=== PATIENT | female | born 1980 | race Caucasian/White ===

== ENCOUNTER 2021-10-18 11:00 | Outpatient (CLI) | payer OTHER ==
--- NOTE | 2021-10-18 12:00 | SLEEP CARE CONSULTATION ---
Information from patient questionnaire entered by Omar Sinclair MA. I have reviewed and concur with the information entered by Omar Sinclair MA. This document represents the service I personally performed and the decisions made by , Yisel Jean ARNP. History of Present Illness Service Date and Time: 10/18/2021 1100 Reason for Visit: New patient (INITIAL, ONSET 04/2021, NO PRIORS) Chief Complaint: reports: Unrefreshed sleep, Snoring, Excessive daytime sleepiness, Fatigue, Frequent awakenings at night Date of Onset: GOTTEN WORSE LAST 4-6 MONTHS Usual bedtime: 4522-6770 PM Time it takes to fall asleep: 30-90 minutes Snores at night: Yes Observed to quit breathing while asleep: No Sleeps alone due to snoring: No Number of times waking at night: 2-3 Reasons for waking at night: reports: Choking (occasional when supine for a nap), Pain, Bathroom Toss, Turn, or Twitch while sleeping: Yes Recalls having dreams: No Usually gets out of bed at: 0700 - 0730 Feels refreshed in the morning: No Morning headache: Yes (1 time a week, takes excedrin, gone in 1-2 hrs) Sleepy or fatigued during the day: Yes Ever fallen asleep while driving: No Takes day naps: Yes (3-4 times for 2-3 hrs) Dreams during day naps: No Prior sleep studies: No Additional HPI information: I had the pleasure of seeing TINY MONTANA today regarding the possibility of her having a sleep disorder. Her current complaints are fatigue, frequent night awakenings, snoring and unrefreshed sleep. She states over the past few months her is telling her that she is snoring all the time. She is tired all the time. She has not been taking her vitamin D which used to help her feel more awake during the day. She is having problems with stating awake during the day and will have to take a nap for a few hours. She tosses and turns due to back pain. She wakes up for the bathroom and for pain. She just retired from her job and she has been steadily gaining weight over last 20 years. She has gone throu gh a series of injuries and then surgeries through these years. She was in the [facility]. She states when she was on the ship she would not be able to sleep and was given Ambien. She says it helped to keep her asleep. - Parasomnia Symptoms Ever been unable to move upon waking from sleep: No Walks in sleep: No Talks in sleep: No Ever acted out dreams in sleep: Yes (wakes herself up crying occasionally) Ever felt weak in the knees when startled or emotional: No Bothered by creepy, crawly, restless sensations in legs: No Problems with memory or concentration: Yes (both, memory is worse than concentration) Subjective Initial [place] Sleepiness Scale score: 15 (2020) Past Medical History Past Medical History: reports: Insulin resistance, Anxiety, Mood disorder (PTSD), Other (PELVIC FLOOR PAIN, LOWER BACK/NECK PAIN; borderline diabetes) Social History The patient's occupation is a RE. Patient is and lives in [place]. Have you smoked in the past 12 months: No Quit date: Alcohol use: Yes Alcohol amount and frequency: 4-6 X MONTHLY Caffeine use: Yes Caffeine amount and frequency: 1-2 CUPS DAILY Family History Family history of sleep disordered breathing: Yes Family Hx Sleep Apnea: Mother: Snoring, Father: Snoring Allergies and Home Medications Known drug allergies: Yes (MYCELEX) Home medication list reviewed: Yes Allergy and home medication list: Cetirizine Flonase Review of Systems Weight gain over past 5 years: 67+ Cardiovascular: reports: leg or foot swelling Gastrointestinal: reports: diarrhea Urinary: reports: frequency Neurological: reports: headaches Psychiatric: reports: anxiety Ear/Nose/Throat: reports: nasal congestion, sinus problems, wisdom teeth removed (took out 2). denies: tonsillectomy Endocrine: reports: sluggishness Musculoskeletal: reports: joint pain, neck pain, back pain Immunologic: reports: sneezing, itching Physical Exam Vital signs obtained and entered by: Bekah SINCLAIR CMA DEVON Blood Pressure: 129/67 (left) Heart Rate: 63 O2 Saturation: 98 (cloth mask) Height: 5 ft 6 in Weight: 228 lb (with clothes) Body Mass Index: 36.8 BMI Classification: Obese Neck circumference: 16.15 (inches) Mouth and throat: narrow oropharynx Soft palate: long Hard palate: normal Uvula: normal Uvula visualization: 100% Mallampati Class I Tongue: enlarged in size with teeth fontenot on lateral edges Tonsils: 1+ Neck: normal w/o lymphadenopathy or thyromegaly Heart: regular rate and rhythm Lungs: clear bilaterally Impression and Plan 1. Suspected Obstructive Sleep Apnea-Hypopnea Syndrome, as suggested by a history of loud and irregular snoring, gasping or choking in sleep, morning headache, frequent awakening during the night, unrefreshed sleep, cognitive impairment, and excessive daytime sleepiness. Narrow oropharynx and obesity are common predisposing factors for obstructive sleep apnea-hypopnea syndrome. I recommend proceeding to polysomnography to confirm the diagnosis and to assess severity. If the patient has significant sleep disordered breathing, a manual CPAP titration study will also be performed to find the optimal treatment pressure. I informed the patient of what the sleep studies involve and after some discussion, obtained agreement to proceed. The pathophysiology of obstructive sleep apnea-hypopnea syndrome was discussed with the patient and health risks of cardiovascular and cerebrovascular disease if not treated. Risks of drowsy driving discussed in detail and patient advised to avoid long distance driving and to date puller at the first sign of drowsiness. Patient agreed to plan. * Schedule polysomnography/HST * Avoid long distance driving or driving when feeling sleepy. * Avoid alcohol, sedative and muscle relaxant around bedtime. * Attempt to lose weight. * Review instructions provided by trained office staff on how to prepare for the sleep study. * Return for follow-up after sleep study completed. Counseling Topics: Weight loss health impact Visit Type: In Office Time Spent with Patient (minutes): 32 Provider Statement: I spent 100% of the Face to Face Visit with the patient with greater than 50% spent counseling the patient and coordination of care.
[2021-10-18 12:01] VITALS: BP 129/67
== END 2021-10-18 11:01 | disposition home or self-care (01) ==
LOC: SC 11:00
PROVIDERS: ATTEND Nurse Practitioner Family
DX: R06.83 Snoring (principal); R51.9 Headache, unspecified; G47.8 Other sleep disorders; R41.89 Other symptoms and signs involving cognitive functions and awareness; G47.10 Hypersomnia, unspecified
CPT/HCPCS: 99203; 99212

== ENCOUNTER 2021-12-07 16:19 | Outpatient (CLI) | payer OTHER | END 2021-12-07 16:20 | disposition home or self-care (01) | LOC: SC 16:19 | PROVIDERS: ATTEND Nurse Practitioner Family | DX: G47.33 Obstructive sleep apnea (adult) (pediatric) (principal); R09.02 Hypoxemia | CPT/HCPCS: 95806 ==

== ENCOUNTER 2022-01-11 16:25 | Outpatient (CLI) | payer OTHER ==
[2022-01-11 16:55] VITALS: BP 137/88
--- NOTE | 2022-01-11 16:55 | SLEEP CARE CONSULTATION ---
Information from patient questionnaire entered by Omar Flores MA. I have reviewed and concur with the information entered by Omar Flores MA. This document represents the service I personally performed and the decisions made by , Yisel Jean ARNP. History of Present Illness Service Date and Time: 01/11/2022 1625 Initial [place] Sleepiness Scale score: 15 (2020) Current [place] Sleepiness Scale score: 16 (12/2021) Additional HPI information: TINY MONTANA returns for follow up and results of the recently performed home sleep study. I explained the pathophysiology behind obstructive sleep apnea. We then spent quite a bit of time discussing different treatment options. For mild obstructive sleep apnea, surgery and oral appliance are alternatives to nasal CPAP therapy but in moderate or severe cases, nasal CPAP is the most effective and reliable treatment. Because apnea is primarily in supine position, then positional management therapy could be effective. Methods discussed such as positioning with pillows to prevent supine sleep. I reviewed the impact of weight changes on sleep apnea and strongly recommended losing weight. After some discussion, the patient opted to go with the nasal CPAP therapy. Nasal autoCPAP set at 4-15 cmH20 will be ordered with rationale explained. A manual titration study will be ordered if unable to find optimal pressure with office adjustments. I explained how CPAP machine works and what to expect when using the machine. Using CPAP every night in order to get used to it was emphasized. Patient advised to put CPAP mask on before getting into bed so as not to fall asleep without CPAP. To assist acclimation to CPAP use, it could also be used for a short time during day while reading or watching TV. The patient was instructed to call the CPAP supplier to discuss any mechanical problem that may occur. If the mask given is uncomfortable or is difficult to keep on through the night even with adjustment, contact the CPAP supplier as many will replace with anothe r mask style if notified before 30 days. If snoring or perceives is not getting enough air or too much air from the machine, notify this office. AASM patient education PAP tips reviewed and given to patient. Patient does not drink alcohol. Patient was cautioned about risks of drowsy driving until sleepiness symptoms resolve. Sleep Study - Results Type of Sleep Study: Home sleep study (F\U HOME STUDY) Prior sleep studies: No Polysomnography/Home Sleep Study results: Physician Impression: The quality of the study is good. The length of the study is adequate (> 240 minutes). Please also see the tabulated and graphic data. 1. Obstructive Sleep Apnea-Hypopnea (ICD-10 G47.33), mild, with an AHI of 10.5/hr and mahendra SaO2 of 81%. During the study, the patient had 6 apneas (6 obstructive, 0 central, 0 mixed) and 61 hypopneas. The longest episode lasted 90.5 seconds. The respiratory events occurred more frequently during supine sleep (supine AHI was 12.5 and non-supine, 7.04). 2. Hypoxemia (ICD-10 R09.02), mild, with the lowest oxygen saturation of 81 % and 73.5 minutes with SaO2 under 90%. Baseline oxygen saturation was normal (Average oxygen saturation was 91%). Allergies and Home Medications Home medication list reviewed: Yes (Vitamin D) Allergy and home medication list: Allergies clotrimazole [From Mycelex] Allergy (Verified 12/12/14 09:22) Rash Review of Systems Review of systems same as previous: No (Gastro-diverticulitis w/in sigmoid, waiting to see what they will do) Physical Exam Vital signs obtained and entered by: VALENTINA DEE Blood Pressure: 137/88 (LEFT,PULSE 78, RESP 16, ) Cuff size: wrist Heart Rate: 72 O2 Saturation: 97 (PAPER) Height: 5 ft 7 in Weight: 230 lb Weight change since last visit: 222 Body Mass Index: 36.0 BMI Classification: Obese Impression and Plan 1. Obstructive Sleep Apnea-Hypopnea Syndrome, mild, with lowest oxygen saturation of 81%. Obviously this is the cause of the patients symptoms of unrefreshed sleep, and excessive daytime sleepiness. Positive pressure therapy could benefit insulin resistance, anxiety and mood disorder (PTSD). As mentioned above, the patient will be started on nasal autoCPAP therapy with pressure set at 4-15 cmH2O. A manual titration study will be completed if unable to find optimal treatment pressure with office adjustments. Compliance guidelines also reviewed. A copy of compliance guidelines will be given for reference at check out. Because the apnea is more severe supine, I instructed to avoid sleeping supine using pillow positioning until able to start CPAP use. 2. Hypoxemia, mild, with the lowest oxygen saturation of 81 % and 73.5 minutes with SaO2 under 90%. Her baseline oxygen saturation was normal with an average oxygen saturation of 91%. * Nasal auto CPAP therapy, pressure at 4-15 cm H2O. * Attempt to lose weight. * Avoid alcohol consumption near bedtime. * Avoid supine sleep until using CPAP. * The patient is again cautioned about driving until sleepiness completely resolves. * Return one month after CPAP obtained. I will assess response to therapy and compliance at that time. Counseling Topics: Weight loss health impact Visit Type: In Office Time Spent with Patient (minutes): 20 Provider Statement: I spent 100% of the Face to Face Visit with the patient with greater than 50% spent counseling the patient and coordination of care.
== END 2022-01-11 16:26 | disposition home or self-care (01) ==
LOC: SC 16:25
PROVIDERS: ATTEND Nurse Practitioner Family
DX: G47.33 Obstructive sleep apnea (adult) (pediatric) (principal); R09.02 Hypoxemia; E66.9 Obesity, unspecified; Z68.36 Body mass index [BMI] 36.0-36.9, adult
CPT/HCPCS: 99212; 99213

== ENCOUNTER 2022-02-28 19:17 | Emergency (ER) | payer OTHER ==
[2022-02-28] MEDS ORDERED: cephALEXin 250 MG CAPSULE PO STA (19:45)
--- NOTE | 2022-02-28 19:49 | ED Physician Documentation ---
History of Present Illness - Stated complaint Stated Complaint: R BREAST PX - Chief complaint Chief Complaint: General - History obtained from History obtained from: Patient - History of Present Illness Timing: Today Pain level max: 3 Pain level now: 3 - Additonal information Additional information: 41-year-old female presents to the emergency department for right breast pain. She noticed redness and streaking on the breast today. Had chills at work. Feels similar to prior episodes of mastitis but she is not currently breast- feeding. Nothing makes it better or worse. Does not recall any trauma. Review of Systems Constitutional: reports: Chills. denies: Fever Cardiac: denies: Chest pain / pressure, Palpitations Respiratory: denies: Cough GI: denies: Abdominal Pain, Nausea, Vomiting, Diarrhea Skin: denies: Rash Musculoskeletal: denies: Neck pain, Back pain Neurologic: denies: Headache PD PAST MEDICAL HISTORY - Past Medical History Past Medical History: Yes Cardiovascular: Hypertension Respiratory: Sleep apnea BOBTAIL DRIVER: Other Musculoskeletal: Chronic back pain - Past Surgical History Past Surgical History: Yes General: Cholecystectomy Ortho: Shoulder arthroplasty, Other - Present Medications Home Medications: Ambulatory Orders Medication Instructions Recorded Confirmed Impranon 06/01/14 12/12/14 Cyclobenzaprine [Flexeril] 10 mg PO TID PRN #20 tablet 12/12/14 Tramadol HCl 50 - 100 mg PO Q6HR PRN #20 tablet 12/12/14 metFORMIN [Glucophage] 800 mg PO DAILY 12/12/14 12/12/14 Cetirizine HCl/Pseudoephedrine 1 tab PO DAILY 07/10/21 07/10/21 [Zyrtec-D Tablet] Fluticasone [Flonase] 2 sprays LOCO DAILY 07/10/21 07/10/21 HYDROcod/ACETAM 5/325 [[place] 5/325] 1 - 2 ea PO Q6H PRN #14 tablet 07/10/21 Penicillin V Potassium 500 mg PO Q6HR #40 tablet 07/10/21 cephALEXin [Keflex] 500 mg PO Q6H #28 cap 02/28/22 - Allergies Allergies/Adverse Reactions: Allergies Allergy/AdvReac Type Severity Reaction Status Date / Time clotrimazole [From Mycelex] Allergy Rash Verified 02/28/22 19:25 - Social History Does the pt smoke?: No Smoking Status: Never smoker Does the pt drink ETOH?: Yes Does the pt have substance abuse?: No - Immunizations Immunizations are current?: Yes - POLST Patient has POLST: No PD ED PE NORMAL - Vitals Vital signs reviewed: Yes - General General: Alert and oriented X 3, No acute distress - HEENT HEENT: Moist mucous membranes - Neck Neck: Supple, no meningeal sign - Cardiac Cardiac: RRR, Strong equal pulses - Respiratory Respiratory: No respiratory distress, Clear bilaterally - Derm Derm: Warm and dry - Neuro Neuro: Alert and oriented X 3 - Psych Psych: Normal mood, Normal affect - Free text exam Free text exam: mild erythema and streaking to the R breast from the nipple. no palpable absc ess. no drainage. L breast is normal. Results - Vitals Vitals: Vital Signs - 24 hr 02/28/22 02/28/22 19:23 19:51 Temperature 36.3 C L 36.4 C L Heart Rate 84 81 Respiratory 16 16 Rate Blood Pressure 151/62 H 149/61 H O2 Saturation 97 98 Oxygen O2 Source Room air PD MEDICAL DECISION MAKING - ED course Complexity details: considered differential, d/w patient ED course: Patient with mastitis. Given Keflex here. Will place on Keflex for home. We will have her follow-up with her doctor for further care. No evidence of breast abscess. No evidence of tumor. Normal breast exam otherwise. No lymphadenopathy. Patient counseled regarding signs and symptoms for which I believe and urgent re-evaluation would be necessary. Patient with good understanding of and agreement to plan and is comfortable going home at this time This document was made in part using voice recognition software. While efforts are made to proofread this document, sound alike and grammatical errors may occur. Departure - Departure Disposition: 01 Home, Self Care Clinical Impression: Mastitis Condition: Good Instructions: ED Breast Infec Follow-Up: NATALIE POSEY ARNP [Primary Care Provider] - Prescriptions: cephALEXin [Keflex] 500 mg PO Q6H #28 cap Comments: Your prescriptions were sent to [facility] in [place]. Please take all antibiotics until gone. Return if you worsen. This should improve in the next 24 to 48 hours. Discharge Date/Time: 02/28/22 20:23
[2022-02-28 19:52] VITALS: BP 149/61
== END 2022-02-28 20:23 | disposition home or self-care (01) ==
LOC: ED 19:17
DX: N61.0 Mastitis without abscess (principal); I10 Essential (primary) hypertension
CPT/HCPCS: 99282; A9270

== ENCOUNTER 2022-07-19 08:00 | Outpatient (CLI) | payer OTHER ==
--- NOTE | 2022-07-20 14:04 | XRAY Report ---
PROCEDURE: Hip BILAT INDICATIONS: BILAT HIP PAIN TECHNIQUE: 2 views of each hip were acquired, along with AP pelvis. COMPARISON: None. FINDINGS: Bones: No fractures or dislocations. No suspicious bony lesions. The visualized pelvic ring appear s intact. Mild bilateral hip and sacroiliac joint degeneration. Soft tissues: No suspicious soft tissue calcifications or masses. IMPRESSION: 1. No acute osseous abnormalities. 2. Mild degenerative joint disease. Reviewed by: Claudia Santana MD on 07/20/2022 2:02 PM PDT Approved by: Claudia Santana MD on 07/20/2022 2:02 PM PDT Station ID: [id number]
== END 2022-07-19 23:59 | disposition home or self-care (01) ==
LOC: DI.WOS 08:00
PROVIDERS: ATTEND Orthopaedic Surgery
DX: M16.0 Bilateral primary osteoarthritis of hip (principal)

== ENCOUNTER 2022-11-02 13:02 | Outpatient (CLI) | payer OTHER ==
[2022-11-02 13:51] VITALS: BP 112/78
--- NOTE | 2022-11-02 13:51 | SLEEP CARE CONSULTATION ---
Information from patient questionnaire entered by Hattie Pantoja. I have reviewed and concur with the information entered by Hattie Pantoja. This document represents the service I personally performed and the decisions made by , Yisel Jean ARNP. History of Present Illness Service Date and Time: 11/02/2022 1302 Previous diagnosis: Mild, Obstructive Sleep Apnea-Hypopnea Syndrome AHI: 10.5 Reason for follow up: first compliance (SET UP 02/01/22) Equipment type: CPAP (RESMED) Equipment obtained from: Other ([facility]; getting supplies) Mask style: Nasal pillows Mask brand: Resmed (Airfit [id number]) Backup mask available: Yes (other mask) Last cushion change: 3-4 weeks ago Prior sleep studies: No Type of Sleep Study: Home sleep study (F\U HOME STUDY) HPI additional information: TINY MONTANA was diagnosed to have mild, AHI 10.5, obstructive sleep apnea- hypopnea syndrome and returned today for CPAP therapy first compliance follow- up. Sleep Study - Results Type of Sleep Study: Home sleep study (F\U HOME STUDY) Prior sleep studies: No CPAP Compliance Data - Data Reviewed with Patient Average duration of nightly device use: 7 hours 26 minutes Compliance rate %: 27 (06/26 days used) Current pressure setting (cmH2O): 4-15 (median 8.7, avg 11.7, max 13.5) Average residual AHI: 1.1 Central apnea: 0.0 Obstructive apnea: 0.9 Average large leak: 0.0 Subjective Missed days of use due to: reports: other (having nasal congestion that limits her ability to use her mask) Patient concerns: reports: mask leak noise, nasal congestion, dry mouth, nose, throat. denies: aerophagia, mask discomfort, air blowing in eyes, condensation in mask/hose, epistaxis Observed to snore while using device: No Current pressure setting perceived as: comfortable On therapy, patient: reports: sleeping better, awakening more refreshed, being more awake and alert during the day, more rested overall. denies: drowsiness while driving Initial [place] Sleepiness Scale score: 15 (2020) Current [place] Sleepiness Scale score: 13 (11/02/22) Allergies and Home Medications Drug allergies reviewed: Yes (clotrimazole) Home medication list reviewed: Yes Allergy and home medication list: New Medications: oxybutynin chloride 5 mg ibuprofen 800 mg loratidine 10 mg Albuterol 90mcg inhaler azelastine 205.5 mcg Nexplanon Drysol Clobetasol Diclonal sodium gel Metronidazole Olopatadine eye drops Review of Systems Review of systems same as previous: No (sinus issues) Physical Exam Vital signs obtained and entered by: HATTIE Fritz MA Blood Pressure: 112/78 (LEFT ARM) Cuff size: long Heart Rate: 68 O2 Saturation: 96 Height: 5 ft 6 in Weight: 253 lb 3.2 oz Body Mass Index: 40.8 BMI Classification: Morbidly Obese Impression and Plan 1. Obstructive Sleep Apnea-Hypopnea Syndrome, mild, with poor treatment compliance and good apnea control. On CPAP therapy, the patient has better sleep quality and is more rested overall. The patients pressure will be changed to autoCPAP 10-14 cmH20 to reflect pressures being used. Patient advised to contact me if pressure change is uncomfortable so that it can be adjusted. Goals for apnea control discussed. She has had some nasal congestion limiting her ability to use her nasal cushion mask. I will have her be fitted for full face to help her be able to be more compliant with her CPAP use. Patient's apnea severity and rationale for treatment to reduce apnea, improve sleep quality and reduce cardiovascular and cerebrovascular events was reviewed. I also reviewed the benefit of consistent device use of CPAP for insulin resistance, anxiety and PTSD. 2. Obesity, unspecified. Currently patients BMI is 40.8. Obesity increases the risk of apnea, CPAP pressure requirements and overall health risks especially cardiovascular and diabetes. Thus patient is advised to continue to try to lose weight. * Change auto CPAP pressure to 10-14 cmH2O * mask fitting for full face mask * Notify me if snoring with mask or feeling that the pressure is too much or too little * Attempt to lose weight * Call this office if any problems using CPAP * Return for follow up in 1-2 months, or sooner if concerns arise Counseling Topics: Spare mask, Weight loss health impact Visit Type: In Office Time Spent with Patient (minutes): 21 Provider Statement: I spent 100% of the Face to Face Visit with the patient with greater than 50% spent counseling the patient and coordination of care.
== END 2022-11-02 13:03 | disposition home or self-care (01) ==
LOC: SC 13:02
PROVIDERS: ATTEND Nurse Practitioner Family
DX: G47.33 Obstructive sleep apnea (adult) (pediatric) (principal); E66.01 Morbid (severe) obesity due to excess calories; Z68.41 Body mass index [BMI] 40.0-44.9, adult
CPT/HCPCS: 99212; 99213

== ENCOUNTER 2023-02-08 13:08 | Outpatient (CLI) | payer OTHER ==
--- NOTE | 2023-02-08 13:54 | SLEEP CARE CONSULTATION ---
Information from patient questionnaire entered by Hattie Pantoja. I have reviewed and concur with the information entered by Hattie Pantoja. This document represents the service I personally performed and the decisions made by , Yisel Jean ARNP. History of Present Illness Service Date and Time: 02/08/2023 1308 Previous diagnosis: Mild, Obstructive Sleep Apnea-Hypopnea Syndrome AHI: 10.5 Reason for follow up: other (4 MONTH F/U) Equipment type: CPAP (RESMED Airsense 11, s/u 01/2022) Equipment obtained from: Other ([facility]; getting supplies) Mask style: Nasal pillows Backup mask available: No (will keep old mask when replaced) Last cushion change: 2 weeks Prior sleep studies: No Type of Sleep Study: Home sleep study (F\U HOME STUDY) HPI additional information: TINY [place] was diagnosed to have mild, AHI 10.5, obstructive sleep apnea- hypopnea syndrome and returned today for CPAP therapy four month follow-up. Sleep Study - Results Type of Sleep Study: Home sleep study (F\U HOME STUDY) Prior sleep studies: No CPAP Compliance Data - Data Reviewed with Patient Average duration of nightly device use: 6 hours 7 minutes Compliance rate %: 37 (90/220 days used; 50% in last 30 days) Current pressure setting (cmH2O): 4-15 (median 7.0, avg 9.6, max 11.2) Average residual AHI: 1.5 Central apnea: 0 Obstructive apnea: 1.3 Hypopnea: 0.1 Subjective Missed days of use due to: reports: mask issues (did not get her mask fitting for full face mask) Patient concerns: reports: condensation in mask/hose (occasional), nasal congestion, dry mouth, nose, throat (dry mouth), other (headache). denies: aerophagia, mask discomfort, air blowing in eyes, mask leak noise, epistaxis Observed to snore while using device: No On therapy, patient: reports: sleeping better, awakening more refreshed. de nies: drowsiness while driving Initial [place] Sleepiness Scale score: 15 (2020) Current [place] Sleepiness Scale score: 11 () Allergies and Home Medications Known drug allergies: Yes (clotrimazole) Drug allergies reviewed: Yes Home medication list reviewed: Yes (Ozempic; oxybutynin chloride; phentermine; loratidine; Albuterol) Allergy and home medication list: Allergies clotrimazole [From Mycelex] Allergy (Verified 02/07/23 14:42) Rash Review of Systems Review of systems same as previous: No (acid reflux, allergies, overactive bladder) Physical Exam Vital signs obtained and entered by: HATTIE Fritz MA Blood Pressure: 132/96 (LEFT ARM) Cuff size: long Heart Rate: 77 O2 Saturation: 98 Height: 5 ft 6 in Weight: 246 lb 9.6 oz Body Mass Index: 39.8 BMI Classification: Obese Impression and Plan 1. Obstructive Sleep Apnea-Hypopnea Syndrome, mild, with poor treatment compliance and good apnea control. On CPAP therapy, the patient has better sleep quality and is more rested overall. The pressure changes were not applied at her last visit. The patients pressure will be changed to autoCPAP 7-11 cmH20 to reflect pressure being used. Patient advised to contact me if pressure change is uncomfortable so that it can be adjusted. Goals for apnea control discussed. Patient still having difficulties with her nasal mask because of nasal congestion and dry mouth. At her last visit I wrote for a mask fitting but she has not heard from her DME company. I will put in a second request for a mask fitting for a fullface mask. She was instructed to call them if she does not hear from them in a week. She voiced understanding. Patient's apnea severity and rationale for treatment to reduce apnea, improve sleep quality and reduce cardiovascular and cerebrovascular events was reviewed. I also reviewed the benefit of consistent device use of CPAP for insulin resistance, anxiety and mood disorder (PTSD). 2. Obesity, unspecified. Currently patients BMI is 39.8. She is trying to increase activity to assist in losing weight. She is also taking phentermine. Obesity increases the risk of apnea, CPAP pressure requirements and overall health risks especially cardiovascular and diabetes. Thus patient is advised to lose weight. * Change auto CPAP pressure to 7-11 cmH2O * Second request for mask fitting for full face mask * Notify me if snoring with mask or feeling that the pressure is too much or too little * Attempt to lose weight * Call this office if any problems using CPAP * Return for follow up in 3 month, or sooner if concerns arise Counseling Topics: Spare mask, Weight loss health impact Visit Type: In Office Time Spent with Patient (minutes): 21 Provider Statement: I spent 100% of the Face to Face Visit with the patient with greater than 50% spent counseling the patient and coordination of care.
[2023-02-08 13:57] VITALS: BP 132/96
== END 2023-02-08 13:09 | disposition home or self-care (01) ==
LOC: SC 13:08
PROVIDERS: ATTEND Nurse Practitioner Family
DX: G47.33 Obstructive sleep apnea (adult) (pediatric) (principal); E66.9 Obesity, unspecified; Z68.39 Body mass index [BMI] 39.0-39.9, adult
CPT/HCPCS: 99212; 99213

== ENCOUNTER 2023-02-18 20:16 | Emergency (ER) | payer OTHER ==
[2023-02-18] MEDS ORDERED: predniSONE 20 MG TABLET PO STA (20:30)
[2023-02-18] MEDS ORDERED: BENZONATATE 100 MG CAPSULE PO STA (20:30)
--- NOTE | 2023-02-18 20:32 | ED Physician Documentation ---
PD DONG HEENT - Stated complaint Stated Complaint: SORE THROAT - Chief complaint Chief Complaint: Heent - History obtained from History obtained from: Patient - Additional information Additional information: 2 weeks of cough minimally productive, sore throat. The cough is worse at night, the sore throat is all day. No fevers. [place] PAST MEDICAL HISTORY - Past Medical History Cardiovascular: Hypertension Respiratory: Sleep apnea SPEECH THERAPY ASSISTANT: Other Musculoskeletal: Chronic back pain - Past Surgical History Past Surgical History: Yes General: Cholecystectomy Ortho: Shoulder arthroplasty, Other - Present Medications Home Medications: Ambulatory Orders Medication Instructions Recorded Confirmed Impranon 06/01/14 12/12/14 Cyclobenzaprine [Flexeril] 10 mg PO TID PRN #20 tablet 12/12/14 Tramadol HCl 50 - 100 mg PO Q6HR PRN #20 tablet 12/12/14 metFORMIN [Glucophage] 800 mg PO DAILY 12/12/14 12/12/14 Cetirizine HCl/Pseudoephedrine 1 tab PO DAILY 07/10/21 07/10/21 [Zyrtec-D Tablet] Fluticasone [Flonase] 2 sprays LOCO DAILY 07/10/21 07/10/21 HYDROcod/ACETAM 5/325 [[place] 5/325] 1 - 2 ea PO Q6H PRN #14 tablet 07/10/21 Penicillin V Potassium 500 mg PO Q6HR #40 tablet 07/10/21 cephALEXin [Keflex] 500 mg PO Q6H #28 cap 02/28/22 Albuterol Sulfate [Proair See Rx Instructions .ROUTE .COMPLEX 11/02/22 11/02/22 Respiclick] Aluminum Chloride [Drysol] See Rx Instructions .ROUTE .COMPLEX 11/02/22 11/02/22 Clobetasol 0.05% Oint [Temovate See Rx Instructions .ROUTE .COMPLEX 11/02/22 11/02/22 0.05% Oint] Diclofenac Sodium 1% Gel [Voltaren See Rx Instructions .ROUTE .COMPLEX 11/02/22 11/02/22 Gel] Etonogestrel [Nexplanon] See Rx Instructions .ROUTE .COMPLEX 11/02/22 11/02/22 Ibuprofen [Motrin] See Rx Instructions .ROUTE .COMPLEX 11/02/22 11/02/22 Metronidazole [Vandazole] See Rx Instructions .ROUTE .COMPLEX 11/02/22 11/02/22 Olopatadine HCl See Rx Instructions .ROUTE .COMPLEX 11/02/22 11/02/22 oxyBUTYnin chloride [Oxybutynin See Rx Instructions .ROUTE .COMPLEX 11/02/22 11/02/22 Chloride] Benzonatate [Tessalon] 200 mg PO TID PRN #20 cap 02/18/23 guaiFENesin/CODEINE [Robitussin AC] 5 - 10 ml PO Q6H PRN #120 ml 02/18/23 predniSONE [Deltasone] 60 mg PO DAILY 5 Days #15 tablet 02/18/23 - Allergies Allergies/Adverse Reactions: Allergies Allergy/AdvReac Type Severity Reaction Status Date / Time clotrimazole [From Mycelex] Allergy Rash Verified 02/18/23 20:18 - Social History Does the pt smoke?: No Smoking Status: Never smoker Does the pt drink ETOH?: Yes Does the pt have substance abuse?: No - Immunizations Immunizations are current?: Yes - POLST Patient has POLST: No PD ED PE NORMAL - Vitals Vital signs reviewed: Yes - General General: Alert and oriented X 3, No acute distress - HEENT HEENT: Other (Red tonsillar pillars without exudate, occasional cough.) - Cardiac Cardiac: RRR, No murmur - Respiratory Respiratory: No respiratory distress, Clear bilaterally - Abdomen Abdomen: Non tender - Neuro Neuro: Alert and oriented X 3, Normal speech - Psych Psych: Normal mood, Normal affect Results - Vitals Vitals: Vital Signs - 24 hr 02/18/23 20:18 Temperature 36.5 C Heart Rate 85 Respiratory 16 Rate Blood Pressure 160/90 H O2 Saturation 98 Oxygen O2 Source Room air PD Medical Decision Making - ED course ED course: 42-year-old woman with viral upper respiratory infection that is persistent. She appears well and with the exception of red tonsillar pillars has normal exam and has already tested negative for strep. Further diagnostic testing is not indicated. Departure - Departure Disposition: 01 Home, Self Care Clinical Impression: Viral respiratory infection Condition: Good Record reviewed to determine appropriate education?: Yes Instructions: ED Viral Syndrome Prescriptions: predniSONE [Deltasone] 60 mg PO DAILY 5 Days #15 tablet guaiFENesin/CODEINE [Robitussin AC] 5 - 10 ml PO Q6H PRN #120 ml PRN Reason: Cough Benzonatate [Tessalon] 200 mg PO TID PRN #20 cap PRN Reason: Cough Comments: I sent your prescriptions electronically to [facility] in [place]. Return if you worsen or develop a fever. Otherwise I would expect your symptoms to persist for several more days, potentially a week or 2. Do not drink or drive while taking prescription codeine-containing cough syrup.
[2023-02-18 20:44] VITALS: BP 158/84
== END 2023-02-18 20:44 | disposition home or self-care (01) ==
LOC: ED 20:16
DX: J06.9 Acute upper respiratory infection, unspecified (principal); I10 Essential (primary) hypertension
CPT/HCPCS: 99283; A9270; J7512

== ENCOUNTER 2023-04-10 18:58 | Emergency (ER) | payer OTHER ==
[2023-04-10 19:09] VITALS: BP 135/69
[2023-04-10] MEDS ORDERED: ALBUTEROL 1 PUFF INH STA (19:20)
--- NOTE | 2023-04-10 19:58 | ED Physician Documentation ---
History of Present Illness - Stated complaint Stated Complaint: COUGH - Chief complaint Chief Complaint: Resp - Additonal information Additional information: 42-year-old female presents emergency department for evaluation of cough that began about 3 months ago. Was initially seen in an emergency department and thought to have a viral symptom. Her symptoms did not improve with a course of steroids. Subsequently she followed up with an tree scout who did extensive allergy testing and found no acute findings. She was told to start taking loratadine and Flonase daily. Despite this however she continues to cough which is especially worse at night. She is unable to lay supine and is using 4 pillows to sleep upright with. Therefore her primary care doctor referred her to an ear nose throat doctor who found that she had evidence of esophageal reflux on her vocal cords. Patient was started on Prilosec. Despite taking Prilosec and albuterol she continues to have cough and orthopnea. She again spoke with her primary doctor and now a referral is pending to GI for an EGD as well as to pulmonology. Patient has had no fevers, the cough is not productive. There is no night sweats or weight loss. She is a non-smoker. Review of Systems Constitutional: denies: Fever Throat: reports: Reviewed and negative Cardiac: reports: Reviewed and negative Respiratory: reports: Dyspnea, Cough. denies: Hemoptysis, Wheezing GI: reports: Reviewed and negative : reports: Reviewed and negative Neurologic: reports: Reviewed and negative PD PAST MEDICAL HISTORY - Past Medical History Cardiovascular: Hypertension Respiratory: Sleep apnea PRODUCER: Other Musculoskeletal: Chronic back pain - Past Surgical History Past Surgical History: Yes General: Cholecystectomy Ortho: Shoulder arthroplasty, Other - Present Medications Home Medications: Ambulatory Orders Medication Instructions Recorded Confirmed Impranon 06/01/14 12/12/14 Cyclobenzaprine [Flexeril] 10 mg PO TID PRN #20 tablet 12/12/14 Tramadol HCl 50 - 100 mg PO Q6HR PRN #20 tablet 12/12/14 metFORMIN [Glucophage] 800 mg PO DAILY 12/12/14 12/12/14 Cetirizine HCl/Pseudoephedrine 1 tab PO DAILY 07/10/21 07/10/21 [Zyrtec-D Tablet] Fluticasone [Flonase] 2 sprays LOCO DAILY 07/10/21 07/10/21 HYDROcod/ACETAM 5/325 [[place] 5/325] 1 - 2 ea PO Q6H PRN #14 tablet 07/10/21 Penicillin V Potassium 500 mg PO Q6HR #40 tablet 07/10/21 cephALEXin [Keflex] 500 mg PO Q6H #28 cap 02/28/22 Albuterol Sulfate [Proair See Rx Instructions .ROUTE .COMPLEX 11/02/22 11/02/22 Respiclick] Aluminum Chloride [Drysol] See Rx Instructions .ROUTE .COMPLEX 11/02/22 11/02/22 Clobetasol 0.05% Oint [Temovate See Rx Instructions .ROUTE .COMPLEX 11/02/22 11/02/22 0.05% Oint] Diclofenac Sodium 1% Gel [Voltaren See Rx Instructions .ROUTE .COMPLEX 11/02/22 11/02/22 Gel] Etonogestrel [Nexplanon] See Rx Instructions .ROUTE .COMPLEX 11/02/22 11/02/22 Ibuprofen [Motrin] See Rx Instructions .ROUTE .COMPLEX 11/02/22 11/02/22 Metronidazole [Vandazole] See Rx Instructions .ROUTE .COMPLEX 11/02/22 11/02/22 Olopatadine HCl See Rx Instructions .ROUTE .COMPLEX 11/02/22 11/02/22 oxyBUTYnin chloride [Oxybutynin See Rx Instructions .ROUTE .COMPLEX 11/02/22 11/02/22 Chloride] Benzonatate [Tessalon] 200 mg PO TID PRN #20 cap 02/18/23 guaiFENesin/CODEINE [Robitussin AC] 5 - 10 ml PO Q6H PRN #120 ml 02/18/23 predniSONE [Deltasone] 60 mg PO DAILY 5 Days #15 tablet 02/18/23 - Allergies Allergies/Adverse Reactions: Allergies Allergy/AdvReac Type Severity Reaction Status Date / Time clotrimazole [From Mycelex] Allergy Rash Verified 04/10/23 19:05 - Social History Does the pt smoke?: No Smoking Status: Never smoker Does the pt drink ETOH?: Yes Does the pt have substance abuse?: No - Immunizations Immunizations are current?: Yes - POLST Patient has POLST: No PD ED PE NORMAL - General General: Alert and oriented X 3, No acute distress - HEENT HEENT: Atraumatic, Moist mucous membranes, Pharynx benign - Neck Neck: Supple, no meningeal sign, No adenopathy - Cardiac Cardiac: RRR, No murmur - Respiratory Respiratory: No respiratory distress, Clear bilaterally - Derm Derm: Normal color, Warm and dry, No rash - Extremities Extremities: No deformity - Neuro Neuro: Alert and oriented X 3, air valve mechanic 2-12 intact Eye Opening: Spontaneous Motor: Obeys Commands Verbal: Oriented GCS Score: 15 Results - Vitals Vitals: Vital Signs - 24 hr 04/10/23 04/10/23 19:00 19:30 Temperature 36.8 C Heart Rate 78 76 Respiratory 18 18 Rate Blood Pressure 135/69 H O2 Saturation 100 Oxygen O2 Source Room air - Rads (name of study) cxr Relevant Findings:: EMP independent interpretation of test (No acute cardiopulmonary process) PD Medical Decision Making - ED course Complexity details: reviewed results, considered differential, d/w patient ED course: 42-year-old female presents emergency department for evaluation of cough this been ongoing now for 3 months. She has been seen by ENT and allergy and is currently taking Prilosec, Flonase, albuterol and loratadine. She was recently prescribed Advair though this has not yet been filled by the pharmacy. She finds that the cough is worse especially at night when laying flat and she often has some loss of voice. Clinically her cardiopulmonary exam was unremarkable. No hypoxia on room air. A chest x-ray as interpreted by myself showed no acute findings suggest mass, pneumonia or pleural effusions. Given the chronicity of the symptoms and the associated orthopnea I do suspect that she may have some lower esophageal dysfunction that is likely causing nighttime reflux. She does have a GI referral pending. An EGD would be the next appropriate step to rule out LES dysfunction. She also has a referral pending to pulmonology. I am encouraging the patient to use her albuterol with a spacer. This teaching was taught today. I am going to discharge her in stable condition. She was chicho nkful for the evaluation today in the ER. The usual emergent return precautions were discussed Departure - Departure Disposition: 01 Home, Self Care Clinical Impression: Chronic cough Condition: Serious Record reviewed to determine appropriate education?: Yes Comments: Shantel de are seen today in the emergency department because you have had a chronic cough for now 3 months. As discussed at the bedside it seems that you are receiving appropriate treatment for acid reflux as well as possible allergies or any postnasal drip. But I do suspect that you may have silent acid reflux at night which is why a gastroenterology referral is necessary. You do need an EGD to make sure that you do not have any lower esophageal sphincter loss of tone. This could cause silent reflux into your throat and lungs at night causing the loss of voice as well as the cough. It is also important to continue to follow-up with the referral to pulmonology. My interpretation of your x-ray today is that there is no acute findings to suggest a pneumonia, pleural effusion or underlying mass. I think it is important that you continue to fill the prescription for the Advair. When this is filled you may find that your cough improves over the next several weeks. I recommend that if you are using the albuterol at home you always use it with a spacer. Return immediately to the ER if you find that you have any severe shortness of air or chest pain.
--- NOTE | 2023-04-10 20:38 | XRAY Report ---
PROCEDURE: Chest 1 View X-Ray INDICATIONS: cough for a few months TECHNIQUE: One view of the chest was acquired. COMPARISON: None. FINDINGS: Surgical changes and devices: None. Lungs and pleura: No pleural effusions or pneumothorax. Lungs are clear. Mediastinum: Mediastinal contours appear normal. Heart size is normal. Bones and chest wall: No suspicious bony lesions. Overlying soft tissues appear unremarkable. IMPRESSION: No acute cardiopulmonary process. Reviewed by: Elizabeth Bass MD on 04/10/2023 8:37 PM PDT Approved by: Elizabeth Bass MD on 04/10/2023 8:37 PM PDT Station ID: [id number]
== END 2023-04-10 20:10 | disposition home or self-care (01) ==
LOC: ED 18:58
DX: R05.3 Chronic cough (principal); I10 Essential (primary) hypertension
CPT/HCPCS: 94640; 94664; 99283; 99284

== ENCOUNTER 2023-09-13 14:46 | Outpatient (CLI) | payer OTHER ==
[2023-09-13 15:28] LABS: BASOPHILS # (AUTO) 0.1 10^3/uL (0.0-0.1); BASOPHILS % (AUTO) 0.5 %; EOSINOPHILS # (AUTO) 0.2 10^3/uL (0.0-0.7); EOSINOPHILS % (AUTO) 1.8 %; HCT - HEMATOCRIT 39.4 % (37.0-47.0); HGB - HEMOGLOBIN 12.8 g/dL (12.0-16.0); LYMPHOCYTES # (AUTO) 3.6 10^3/uL (1.5-3.5); LYMPHOCYTES % (AUTO) 37.2 %; MEAN CORPUSCULAR HEMOGLOBIN 27.5 pg (27.0-31.0); MEAN CORPUSCULAR HGB CONC 32.5 g/dL (32.0-36.0); MEAN CORPUSCULAR VOLUME 84.5 fL (81.0-99.0); MEAN PLATELET VOLUME 8.6 fL (7.9-10.8); MONOCYTES # (AUTO) 0.4 10^3/uL (0.0-1.0); NEUTROPHILS # (AUTO) 5.5 10^3/uL (1.5-6.6); NEUTROPHILS % (AUTO) 56.2 %; PLT - PLATELET COUNT 415 10^3/uL (130-450); RED BLOOD COUNT 4.66 10^6/uL (4.20-5.40); RED CELL DISTRIBUTION WIDTH 13.3 % (12.0-15.0); WHITE BLOOD COUNT 9.7 x10^3/uL (4.8-10.8)
--- NOTE | 2023-09-13 15:37 | XRAY Report ---
PROCEDURE: Humerus LT INDICATIONS: PRESENCE OF IUD TECHNIQUE: 2 views of the humerus were acquired. COMPARISON: None. FINDINGS: Bones: No fractures or dislocations. No suspicious bony lesions. Soft tissues: No suspicious soft tissue calcifications or masses. A foreign body in the distal hum eral subcutaneous tissues is likely a implant to accomplish control. IMPRESSION: No acute bony abnormality. Expected appearance of implanted foreign body. Reviewed by: Mikel Alfaro MD on 09/13/2023 3:36 PM PST Approved by: Mikel Alfaro MD on 09/13/2023 3:36 PM PST Station ID: [id number]
[2023-09-13 16:47] LABS: THYROID STIMULATING HORMONE 1.26 uIU/mL (0.34-5.60)
== END 2023-09-13 14:47 | disposition home or self-care (01) ==
LOC: DI 14:46
PROVIDERS: ATTEND Obstetrics & Gynecology
DX: Z97.5 Presence of (intrauterine) contraceptive device (principal); N93.9 Abnormal uterine and vaginal bleeding, unspecified
CPT/HCPCS: 36415; 84443; 85025

== ENCOUNTER 2023-09-22 09:41 | Outpatient (CLI) | payer OTHER ==
--- NOTE | 2023-09-22 13:53 | Ultrasound Report ---
PROCEDURE: Pelvic w/Transvaginal INDICATIONS: AUB TECHNIQUE: Real-time scanning was performed of the pelvic organs, with image documentation. Additional endovagi nal scanning was necessary due to incomplete visualization of the adnexal and endometrial structures by transabdominal scanning. COMPARISON: None. FINDINGS: Uterus: Uterus is anteverted and normal in size at 8.9 x 3.6 x 5.1 cm with a volume of 85.4 mL The myometrium is heterogeneous. The endometrium measures 6.4 mm in combined thickness. Nabothian cyst measuring 0.8 x 0.8 x 0.6 cm. Ovaries: The right ovary measures 2.6 x 1.3 x 1.3 cm, with a calculated ovarian volume of 2.4 cc. T he left ovary measures 4.4 x 3.3 x 3.4 cm, with a calculated ovarian volume of 25.7 cc. The ovaries have a normal sonographic appearance. Less than 12 follicles can be seen in each ovary. No adnexal masses are seen. Left adnexal anechoic cystic lesion measuring 3.9 x 2.8 x 3.4 cm. Other: No patholo gic free abdominal or pelvic fluid. IMPRESSION: 1.Normal sonographic appearance of the uterus with endometrial thickness of 6.4 mm. 2.Left adnexal simple cystic lesion measuring 3.9 x 2.8 x 3.4 cm. If post menopausal, recommend yearl y follow-up. Reviewed by: Henrik Ortiz MD on 09/22/2023 1:52 PM PST Approved by: Henrik Ortiz MD on 09/22/2023 1:52 PM PST Station ID: [id number]
== END 2023-09-22 09:42 | disposition home or self-care (01) ==
LOC: DI 09:41
PROVIDERS: ATTEND Obstetrics & Gynecology
DX: N92.6 Irregular menstruation, unspecified (principal); N94.10 Unspecified dyspareunia; N94.89 Other specified conditions associated with female genital organs and menstrual cycle; Z97.5 Presence of (intrauterine) contraceptive device

== ENCOUNTER 2023-10-03 15:24 | Outpatient (CLI) | payer OTHER ==
--- NOTE | 2023-10-03 16:00 | Sleep Patient Instructions ---
Sleep Center Visit Summary - Patient Visit Information Reason for Visit: 7 month followup - Patient Instructions Additional Instructions: You were here for follow up of CPAP therapy. You will be continued on CPAP therapy with pressure at 7-11 cmH2O. You should follow up with sleep care in 3 months. You may contact us sooner for any questions or concerns. - Clinic Information Contact: [facility] [address] [place] [id number] [email or web address] T: [phone]
--- NOTE | 2023-10-03 16:05 | SLEEP CARE CONSULTATION ---
Information from patient questionnaire entered by Hattie Pantoja. I have reviewed and concur with the information entered by Hattie Pantoja. This document represents the service I personally performed and the decisions made by me, Yisel Jean ARNP. History of Present Illness Service Date and Time: 10/03/2023 1524 Previous diagnosis: Mild, Obstructive Sleep Apnea-Hypopnea Syndrome AHI: 10.5 Reason for follow up: other (7MONTH F/U) Equipment type: CPAP (RESMED Airsense 11, s/u 01/2022) Equipment obtained from: Other ([facility]; getting supplies) Mask style: Full face Mask brand: Resmed (F30i) Backup mask available: Yes (old mask) Last cushion change: 1st week of Nov Prior sleep studies: No Type of Sleep Study: Home sleep study (F\U HOME STUDY) HPI additional information: TINY MON[place]NA was diagnosed to have mild, AHI 10.5, obstructive sleep apnea- hypopnea syndrome and returned today for CPAP therapy 7 month follow-up. Sleep Study - Results Type of Sleep Study: Home sleep study (F\U HOME STUDY) Prior sleep studies: No CPAP Compliance Data - Data Reviewed with Patient Average duration of nightly device use: 5 HRS 1 MIN Compliance rate %: 49 (03/03/23-12/01/22; 144/212 days used) Current pressure setting (cmH2O): 7-11 Average residual AHI: 1.9 Central apnea: 0 Obstructive apnea: 1.7 Hypopnea: 0.1 Average large leak: 0.6 L/min Subjective Missed days of use due to: reports: illness, other (going to sleep late and forgetting mask) Patient concerns: reports: mask discomfort (air blowing onto arm and causing pain/soreness ). denies: aerophagia, air blowing in eyes, mask leak noise, co ndensation in mask/hose, nasal congestion, dry mouth, nose, throat, epistaxis Current pressure setting perceived as: too low On therapy, patient: reports: sleeping better, awakening more refreshed, being more awake and alert during the day, more rested overall. denies: drowsiness while driving Initial [place] Sleepiness Scale score: 15 (2020) Current [place] Sleepiness Scale score: 17 (10/03/23) Allergies and Home Medications Known drug allergies: Yes (as listed) Drug allergies reviewed: Yes Home medication list reviewed: Yes (erythromycine (fibroids, uterine)) Allergy and home medication list: Allergies clotrimazole [From Mycelex] Allergy (Verified 10/02/23 17:15) Rash Review of Systems Review of systems same as previous: Yes (NO CHANGE) Physical Exam Vital signs obtained and entered by: HATTIE Fritz MA Blood Pressure: 132/82 (RIGHT ARM) Cuff size: long Heart Rate: 80 O2 Saturation: 97 Height: 5 ft 6 in Weight: 244 lb Body Mass Index: 39.4 BMI Classification: Obese Impression and Plan 1. Obstructive Sleep Apnea-Hypopnea Syndrome, mild, with fair treatment compliance and good apnea control. On CPAP therapy, the patient has better sleep quality and is more rested overall. She is had many times where she has fallen asleep without the mask on and wake up at 2 AM and put the mask on. She says the air will sometimes blow on her arm in his colon and causes soreness and pain in her joints. She has had some life stress and illness which has also affected her ability to use her mask. She is going to try to be more diligent in putting her mask on and keeping it on for 4 hours or more. She also sometimes feels like the air is too low when she puts on her mask. I will increase her ramp starting pressure to 5 cmH2O to reduce air hunger. I will have her follow-up in 3 months to recheck her compliance and see how she is doing. Patient's apnea severity and rationale for treatment to reduce apnea, improve sleep quality and reduce cardiovascular and cerebrovascular events was reviewed. I also reviewed the benefit of consistent device use of CPAP for insulin resistance, anxiety and mood disorder (PTSD). 2. Obesity, unspecified. Currently patients BMI is 39.4. Obesity increases the risk of apnea, CPAP pressure requirements and overall health risks especially cardiovascular and diabetes. Thus patient is advised to continue to try to lose weight. * Continue auto CPAP pressure at 7-11 cmH2O * Increased ramp starting pressure to 5 cmH2O * Notify me if snoring with mask or feeling that the pressure is too much or too little * Attempt to lose weight * Call this office if any problems using CPAP * Return for follow up in 3 months, or sooner if concerns arise Counseling Topics: Weight loss health impact Follow up with Sleep Care in: 3 months Visit Type: In Office Time Spent with Patient (minutes): 20 Provider Statement: I spent 100% of the Face to Face Visit with the patient with greater than 50% spent counseling the patient and coordination of care.
[2023-10-03 16:09] VITALS: BP 132/82; O2SAT 97
== END 2023-10-03 15:25 | disposition home or self-care (01) ==
LOC: SC 15:24
PROVIDERS: ATTEND Nurse Practitioner Family
DX: G47.33 Obstructive sleep apnea (adult) (pediatric) (principal); E66.9 Obesity, unspecified; Z68.39 Body mass index [BMI] 39.0-39.9, adult
CPT/HCPCS: 99212; 99213

== ENCOUNTER 2023-12-04 11:00 | Outpatient (CLI) | payer OTHER | END 2023-12-04 11:15 | disposition home or self-care (01) | LOC: LAB.N 11:00 | PROVIDERS: ATTEND Physician Assistant Medical | DX: J02.9 Acute pharyngitis, unspecified (principal) | CPT/HCPCS: 87070 ==

== ENCOUNTER 2023-12-07 08:00 | Outpatient (CLI) | payer OTHER ==
[2023-12-07 22:16] LABS: CHLAMYDIA TRACHOMATIS DNA NEGATIVE (NEGATIVE); NEISSERIA GONORRHOEAE DNA NEGATIVE (NEGATIVE)
[2023-12-07 23:18] LABS: BACTERIAL VAGINOSIS DNA NEGATIVE (NEGATIVE); CANDIDA GLABRATA DNA NEGATIVE (NEGATIVE); CANDIDA GROUP DNA POSITIVE (NEGATIVE); CANDIDA KRUSEI DNA NEGATIVE (NEGATIVE); TRICHOMONAS VAGINALIS DNA NEGATIVE (NEGATIVE)
== END 2023-12-07 23:59 | disposition home or self-care (01) ==
LOC: LAB.N 08:00
PROVIDERS: ATTEND Family Medicine
DX: N76.0 Acute vaginitis (principal); Z11.3 Encounter for screening for infections with a predominantly sexual mode of transmission
CPT/HCPCS: 81514; 87491; 87591; 87661

== ENCOUNTER 2023-12-07 12:45 | Outpatient (CLI) | payer OTHER ==
[2023-12-09 23:08] LABS: HCV AB Non Reactive (Non Reactive)
[2023-12-10 02:08] LABS: HSV 2 IGG TYPE SPEC <0.91 index (0.00-0.90)
[2023-12-10 05:13] LABS: RPR Non Reactive (Non Reactive)
== END 2023-12-07 13:00 | disposition home or self-care (01) ==
LOC: LAB.N 12:45
PROVIDERS: ATTEND Family Medicine
DX: N76.0 Acute vaginitis (principal); Z11.3 Encounter for screening for infections with a predominantly sexual mode of transmission
CPT/HCPCS: 36415; 86592; 86695; 86696; 86803

== ENCOUNTER 2024-01-16 15:51 | Outpatient (CLI) | payer OTHER ==
--- NOTE | 2024-01-16 16:30 | Sleep Patient Instructions ---
Sleep Center Visit Summary - Patient Visit Information Reason for Visit: 3-month follow-up - Patient Instructions Additional Instructions: You were here for follow up of CPAP therapy. You will be continued on CPAP therapy with pressure at 7-11 cmH2O. You should follow up with sleep care in 12 months. You may contact us sooner for any questions or concerns. - Clinic Information Contact: [facility] [address] [place] [address] [email or web address] T: [phone]
--- NOTE | 2024-01-16 16:35 | SLEEP CARE CONSULTATION ---
Information from patient questionnaire entered by Hattie Pantoja. I have reviewed and concur with the information entered by Hattie Pantoja. This document represents the service I personally performed and the decisions made by , Yisel Jean ARNP. History of Present Illness Service Date and Time: 01/16/2024 1551 Previous diagnosis: Mild, Obstructive Sleep Apnea-Hypopnea Syndrome AHI: 10.5 (2021) Reason for follow up: three month (F/U) Equipment type: CPAP (RESMED Airsense 11, s/u 01/2022) Equipment obtained from: Other ([facility]; getting supplies) Mask style: Full face Mask brand: Resmed (AirFit F30i) Backup mask available: Yes Last cushion change: 1 month Prior sleep studies: No Type of Sleep Study: Home sleep study HPI additional information: TINY [place] was diagnosed to have mild, AHI 10.5, obstructive sleep apnea- hypopnea syndrome and returned today for CPAP therapy three month follow-up. Sleep Study - Results Type of Sleep Study: Home sleep study (F\U HOME STUDY) Prior sleep studies: No CPAP Compliance Data - Data Reviewed with Patient Average duration of nightly device use: 5 HRS 40 MINS Compliance rate %: 59 (10/16/23-01/13/24; 73% in last 30 days) Current pressure setting (cmH2O): 7-11 Average residual AHI: 1.3 Central apnea: 0.1 Obstructive apnea: 1.1 Average large leak: 0.2 L/min Subjective Patient concerns: reports: mask discomfort, mask leak noise, other (slobber in mask occasionally). denies: aerophagia, air blowing in eyes, condensation in mask/hose, nasal congestion, dry mouth, nose, throat, epistaxis Observed to snore while using device: No Current pressure setting perceived as: comfortable On therapy, patient: reports: sleeping better, awakening more refreshed, being more awake and alert during the day, more rested overall. denies: drowsiness while driving Initial [place] Sleepiness Scale score: 15 (2020) Current [place] Sleepiness Scale score: 12 (01/16/24) Allergies and Home Medications Known drug allergies: Yes (as listed) Drug allergies reviewed: Yes Home medication list reviewed: Yes (no changes) Allergy and home medication list: Allergies clotrimazole [From [employer]] Allergy (Verified 01/14/24 16:46) Rash Review of Systems Review of systems same as previous: Yes (NO CHANGE) Physical Exam Vital signs obtained and entered by: HATTIE Fritz MA Blood Pressure: 120/76 (LEFT ARM) Cuff size: regular Heart Rate: 69 O2 Saturation: 100 Height: 5 ft 6 in Weight: 230 lb 3.2 oz Weight change since last visit: 14 lb loss Body Mass Index: 37.1 BMI Classification: Obese Impression and Plan 1. Obstructive Sleep Apnea-Hypopnea Syndrome, mild, with good treatment compliance and good apnea control. On CPAP therapy, the patient has better sleep quality and is more rested overall. She says she feels the full face mask is the most comfortable, she is using an AirFit F30i. She is more comfortable using the CPAP and wearing it more. She has brought up her compliance to 73% in last 30 days. Patient has significant improvement of their sleep apnea and is satisfied with current CPAP therapy. Patient's apnea severity and rationale for treatment to reduce apnea, improve sleep quality and reduce cardiovascular and cerebrovascular events was reviewed. I also reviewed the benefit of consistent device use of CPAP for anxiety, insulin resistance and mood disorder (PTSD). 2. Obesity, unspecified. Currently patients BMI is 37.1. She has lost weight. Obesity increases the risk of apnea, CPAP pressure requirements and overall health risks especially cardiovascular and diabetes. Thus patient is advised to continue to try to lose weight. * Continue auto CPAP pressure at 7-11 cmH2O * Notify me if snoring with mask or feeling that the pressure is too much or too little * Attempt to lose weight * Call this office if any problems using CPAP * Return for follow up in 12 months, or sooner if concerns arise Counseling Topics: Spare mask, Weight loss health impact Follow up with Sleep Care in: 1 year Visit Type: In Office Time Spent with Patient (minutes): 20 Provider Statement: I spent 100% of the Face to Face Visit with the patient with greater than 50% spent counseling the patient and coordination of care.
[2024-01-16 16:36] VITALS: BP 120/76; O2SAT 100
== END 2024-01-16 15:52 | disposition home or self-care (01) ==
LOC: SC 15:51
PROVIDERS: ATTEND Nurse Practitioner Family
DX: G47.33 Obstructive sleep apnea (adult) (pediatric) (principal)
CPT/HCPCS: 99212; 99213

== ENCOUNTER 2024-03-05 05:58 | Emergency (ER) | payer OTHER ==
[2024-03-05 06:12] VITALS: O2SAT 100
[2024-03-05 06:32] LABS: BILIRUBIN,URINE NEGATIVE (NEGATIVE); GLUCOSE, URINE (UA) NEGATIVE (NEGATIVE); KETONES,URINE (UA) NEGATIVE (NEGATIVE); LEUKOCYTE ESTERASE, URINE MODERATE (NEGATIVE); NITRITE,URINE POSITIVE (NEGATIVE); OCCULT BLOOD,URINE MODERATE (NEGATIVE); PROTEIN,URINE TRACE mg/dL (NEGATIVE); UROBILINOGEN,URINE 0.2 (NORMAL) E.U./dL (NORMAL)
[2024-03-05 06:33] LABS: CLARITY,URINE HAZY (CLEAR)
[2024-03-05 06:38] LABS: BACTERIA,URINE Moderate /HPF (None Seen); RBC,URINE 0-5 /HPF (0-5); SQUAMOUS EPITHELIAL CELL,UR MANY Squamous (<= Few)
--- NOTE | 2024-03-05 06:54 | ED Physician Documentation ---
PD HPI FEMALE - Stated complaint Stated Complaint: - Chief complaint Chief Complaint: Abd Pain - History obtained from History obtained from: Patient - History of Present Illness Associated symptoms: Dysuria, Urinary frequency, Other (has had mild continued vag mucous discharge, expected after hyst/vag sling surgery 7 days ago. Had diaz catheter in for 4 days post op, removed 3 days ago. Has had increasing urinary discomofrot. Some vaginal irritation with wiping.) OB-UNLOADING CHECKER History: Hysterectomy (1 week ago.) Recently seen: Surgery Review of Systems Constitutional: denies: Fever, Chills GI: denies: Vomiting, Diarrhea PD PAST MEDICAL HISTORY - Past Medical History Past Medical History: Yes Cardiovascular: Hypertension Respiratory: Sleep apnea UNLOADING CHECKER: Other Musculoskeletal: Chronic back pain - Past Surgical History Past Surgical History: Yes General: Cholecystectomy Ortho: Shoulder arthroplasty, Other /UNLOADING CHECKER: Hysterectomy - Present Medications Home Medications: Ambulatory Orders Medication Instructions Recorded Confirmed Cetirizine HCl/Pseudoephedrine 1 tab PO DAILY 07/10/21 01/16/24 [Zyrtec-D Tablet] Fluticasone [Flonase] 2 sprays LOCO DAILY 07/10/21 03/05/24 Aluminum Chloride [Drysol] See Rx Instructions .ROUTE .COMPLEX 11/02/22 03/05/24 Clobetasol 0.05% Oint [Temovate See Rx Instructions .ROUTE .COMPLEX 11/02/22 03/05/24 0.05% Oint] Diclofenac Sodium 1% Gel [Voltaren See Rx Instructions .ROUTE .COMPLEX 11/02/22 03/05/24 Gel] Etonogestrel [Nexplanon] See Rx Instructions .ROUTE .COMPLEX 11/02/22 03/05/24 Ibuprofen [Motrin] See Rx Instructions .ROUTE .COMPLEX 11/02/22 03/05/24 Metronidazole [Vandazole] See Rx Instructions .ROUTE .COMPLEX 11/02/22 03/05/24 Olopatadine HCl See Rx Instructions .ROUTE .COMPLEX 11/02/22 03/05/24 Erythromycin [Vaibhav-Tab] See Rx Instructions .ROUTE .COMPLEX 10/03/23 03/05/24 Gabapentin [Gabapentin ER] 300 mg PO DAILY 03/05/24 03/05/24 Phenazopyridine HCl [Pyridium] 100 mg PO TID PRN #15 tablet 03/05/24 cephALEXin [Keflex] 500 mg PO TID #20 cap 03/05/24 - Allergies Allergies/Adverse Reactions: Allergies Allergy/AdvReac Type Severity Reaction Status Date / Time clotrimazole [From Mycelex] Allergy Rash Verified 03/05/24 06:09 nystatin Allergy Rash Verified 03/05/24 06:10 Sulfa (Sulfonamide Allergy Itching Verified 03/05/24 06:10 Antibiotics) - Social History Does the pt smoke?: No Smoking Status: Never smoker Does the pt drink ETOH?: Yes Does the pt have substance abuse?: No - Immunizations Immunizations are current?: Yes - POLST Patient has POLST: No PD ED PE NORMAL - Vitals Vital signs reviewed: Yes - General General: Alert and oriented X 3, No acute distress, Well developed/nourished - Abdomen Abdomen: Soft, Non tender, Other (laparascopic incisions healing well without signs of infection. ) - Female Female : Deferred Results - Vitals Vitals: Vital Signs - 24 hr 03/05/24 03/05/24 06:00 07:27 Temperature 37.1 C 37.0 C Heart Rate 64 68 Respiratory 16 18 Rate Blood Pressure 120/70 124/74 O2 Saturation 100 100 Oxygen O2 Source Room air - Labs Labs: Laboratory Tests 03/05/24 06:25 Urine Color YELLOW Urine Clarity HAZY Urine pH 6.0 Ur Specific [place] >=1.030 H Urine Protein TRACE Urine Glucose (UA) NEGATIVE Urine Ketones NEGATIVE Urine Occult Blood MODERATE H Urine Nitrite POSITIVE H Urine Bilirubin NEGATIVE Urine Urobilinogen 0.2 (NORMAL) Ur Leukocyte Esterase MODERATE H Urine RBC 0-5 Urine WBC 11-25 H Ur Squamous Epith Cells MANY Squamous H Urine Bacteria Moderate H Ur Microscopic Review INDICATED Urine Culture Comments NOT INDICATED PD Medical Decision Making - ED course Complexity details: considered differential, d/w patient ED course: The patient is 1 week status post pelvic surgery of hysterectomy and bladder sling. She had a catheter in for 4 days and was removed 3 days ago. She is having increasing urinary frequency and discomfort. Some mild vaginal mucus drainage which was expected according to her surgeon. She is having some labial and vaginal tenderness with wiping. Denies fever chills nausea vomiting or flank pain. History of chronic back pain which she states is stable. . Urinalysis does support the diagnosis of UTI. She has not had a catheter for 3 days. She is allergic to sulfa/Bactrim. I think we can initiate coverage with cephalexin. She was having some labial type symptoms as well so I had her self obtain a swab for yeast and bacterial vaginitis. The results will come in later today and will call if there is any positives. Pending the urine culture in 2 days, we empirically treated with cephalexin and phenazopyridine. Departure - Departure Disposition: 01 Home, Self Care Clinical Impression: Dysuria, UTI (urinary tract infection), History of pelvic surgery Condition: Stable Record reviewed to determine appropriate education?: Yes Prescriptions: cephALEXin [Keflex] 500 mg PO TID #20 cap Phenazopyridine HCl [Pyridium] 100 mg PO TID PRN #15 tablet PRN Reason: Abdominal Pain Comments: The urine sample you gave does show signs of infection and is consistent with your urinary symptoms. We can treat this with cephalexin antibiotic. In the short-term for the next day or 2, you can also use phenazopyridine which helps with symptoms. Able to do your normal but are not. Stay well-hydrated otherwise. Tylenol ibuprofen as needed for pains. We will culture the urine and contact you in a couple of days if we need to change the antibiotic choice based on that. I sent your prescription to the [facility] pharmacy. Pending result is the vaginal swab to look for signs of yeast infection etc. This takes a few hours often and so we will contact you if there is any positive results later and you can also look it up on the patient portal online. Forms: PCP List Discharge Date/Time: 03/05/24 07:28
[2024-03-05] MEDS: cephALEXin 250 MG CAPSULE PO STA (07:18)
[2024-03-05] MEDS: PHENAZOPYRIDINE 100 MG TABLET PO STA (07:18)
[2024-03-05 07:34] VITALS: BP 124/74
[2024-03-05 09:22] LABS: BACTERIAL VAGINOSIS DNA NEGATIVE (NEGATIVE); CANDIDA GLABRATA DNA NEGATIVE (NEGATIVE); CANDIDA GROUP DNA NEGATIVE (NEGATIVE); CANDIDA KRUSEI DNA NEGATIVE (NEGATIVE); TRICHOMONAS VAGINALIS DNA NEGATIVE (NEGATIVE)
== END 2024-03-05 07:28 | disposition home or self-care (01) ==
LOC: ED 05:58
DX: N39.0 Urinary tract infection, site not specified (principal); G47.30 Sleep apnea, unspecified; Z90.79 Acquired absence of other genital organ(s); I10 Essential (primary) hypertension
CPT/HCPCS: 81001; 81514; 99283; A9270; 81003; 87086